=== PATIENT | female | born 1970 | race Hispanic/Latino ===

== ENCOUNTER 2019-08-25 06:52 | Day surgery (SDC) | payer OTHER ==
[2019-08-25] MEDS ORDERED: SODIUM CHLORIDE 0.9% 1000 ML 1,000 ML IV SCH (07:00)
--- NOTE | 2019-08-25 08:22 | Anesthesia Consultation ---
Anesthesia Consult and Med Hx Date of service: 08/25/19 - Airway Anesthetic Teeth Evaluation: Good ROM Head & Neck: Adequate Mental/Hyoid Distance: Adequate Mallampati Class: Class III Intubation Access Assessment: Possibly Difficult - Pulmonary Exam CTA: Yes - Cardiac Exam Cardiac Exam: RRR - Pre-Operative Health Status ASA Pre-Surgery Classification: ASA1 Proposed Anesthetic Plan: MAC - Pulmonary Hx Smoking: No - Cardiovascular System Hx Hypertension: No (patient reports hx hypotension with normal valvues 80s/60s. Asymptomatic) - Central Nervous System CVA: No - Gastrointestinal Hx Gastroesophageal Reflux Disease: No - Endocrine Hx Renal Disease: No Hx Liver Disease: No Hx Insulin Dependent Diabetes: No Hx Non-Insulin Dependent Diabetes: No Hx Thyroid Disease: No - Other Systems Hx Cancer: Yes (hx melanoma) Hx Obesity: No
--- NOTE | 2019-08-25 08:23 | Anesthesia Day of Surgery ---
Anesthesia Day of Surgery - Day of Surgery Patient Examined: Yes Patient H&P Reviewed: Yes Patient is NPO: Yes
--- NOTE | 2019-08-25 08:23 | History and Physical Report ---
HISTORY OF PRESENT ILLNESS: This is a 49-year-old white female who is here for colonoscopy as part of colon polyp screening because of her age. She does have a family history of cancer, namely uterine cancer and has a prior history of a skin cancer, namely melanoma. Otherwise, she is in relatively good health. ALLERGIES: She has no known allergies. SOCIAL HISTORY: Denies history of smoking and alcohol use. No cardiac issues. No flu shots. PHYSICAL EXAMINATION: VITAL SIGNS: She is afebrile, blood pressure 93/61, pulse is 45, height is 5 feet 5 inches, weight is 136. HEENT: Shows no JVD. LUNGS: Clear to auscultation. CARDIOVASCULAR: Normal. ABDOMEN: Soft. Bowel sounds present. NEUROLOGIC: The patient is otherwise alert and oriented. ASSESSMENT: Colon polyp screening, family history of cancer, namely uterine cancer, prior history of melanoma. PLAN: To do a colonoscopy at [facility] on 08/25/2019. JOB# [id number] LOYD/NTS
[2019-08-25] MEDS ORDERED: LIDOCAINE MPF (2%) 20 MG/1 ML VIAL 5 ML ONE (08:30)
[2019-08-25] MEDS ORDERED: PROPOFOL 200 MG/20 ML VIAL IV ONE ×2 (09:02)
--- NOTE | 2019-08-25 09:27 | Procedure Note ---
Date of procedure: 08/25/19 Pre-op diagnosis: Colon Polyp Screening/F/H/O Cancer Post-op diagnosis: other (No Colon Polyps noted/Solitary,Cecal Diverticulum/Minor,Internal Hemorrhoid/Normal Ileal Mucosa) Procedure: Colonoscopy Anesthesia: MAC Surgeon: GEOFF HARRISON Estimated blood loss: none Pathology: none Condition: stable Disposition: same day (Encoujrage fiber intake. Resume home medication and follow up in 1 to 2 weeks ([phone]).)
--- NOTE | 2019-08-25 09:50 | Operative Report ---
PROCEDURE: Colonoscopy. INDICATIONS: This is a 49-year-old white female in otherwise good health, who had a colonoscopy done as part of colon polyp screening. She has a prior history of a melanoma and a family history of cancer. DESCRIPTION OF PROCEDURE: The procedure was done after getting informed consent with MAC anesthesia. Initial rectal exam was unremarkable. Instrument was passed through the rectum onto the cecum, which was identified with ileocecal valve and the appendiceal orifice, visualization was fair to good. There was a solitary cecal diverticulum noted. The terminal ileum showed normal ileal mucosa. The cecum did not show any additional pathology on the retroverted view. The cecum had one solitary cecal diverticulum. The remaining part of the cecum and ascending colon showed normal mucosa as did the transverse, the descending colon and the sigmoid and the rectum showed some minor internal hemorrhoid on the retroverted view. ASSESSMENT: Colon polyp screening, no colon polyps noted, solitary cecal diverticula and minor internal hemorrhoid. Normal ileal mucosa. There were no biopsies done. No bleeding associated with the procedure. PLAN: The patient will be encouraged to incorporate more fiber in her diet. Follow up in the office in 1-2 weeks' time. Resume her home medications if she is on any and follow up in 1-2 weeks' time. The patient's procedure was done in the GI lab with assistance of the GI lab team, which included Tess CHOI and [place] morales and with assistance of Anesthesia. JOB# [id number] LOYD/MARIUSZ
[2019-08-25 10:15] VITALS: BP 107/55
--- NOTE | 2019-08-25 18:02 | Post Anesthesia Evaluation ---
- Post Anesthesia Evaluation Patient Participated: Yes Airway Patent: Yes Stable Respiratory Function: Yes Nausea/Vomiting: No Temp > 96.8F: Yes Pain Manageable: Yes Adequeate Hydration: Yes Anesthesia Complications: No Block Receding Appropriately: Not Applicable Patient on Ventilator: No
== END 2019-08-25 06:53 | disposition home or self-care (01) ==
LOC: GIO 06:52
DX: Z12.11 Encounter for screening for malignant neoplasm of colon (principal); K57.30 Diverticulosis of large intestine without perforation or abscess without bleeding; K64.8 Other hemorrhoids; Z79.899 Other long term (current) drug therapy; Z98.890 Other specified postprocedural states; Z85.89 Personal history of malignant neoplasm of other organs and systems; Z85.42 Personal history of malignant neoplasm of other parts of uterus
CPT/HCPCS: 45378; J2704; J7030